=== PATIENT | female | born 1955 | race African-American/Black ===

== ENCOUNTER → 2016-08-14 | Outpatient (CLI) | payer BC ==
[~2016-08-14] MED LIST: CALCTAB54 PO; CLON.1 PO; HYDR-2768 PO; LEVO100T4 PO; LISI-357 PO; MEDR4PAK3 PO; POTA10IN2 PO
== END ==
LOC: CLAB 15:22
PROVIDERS: ATTEND Internal Medicine Hematology
DX: R23.3 Spontaneous ecchymoses (principal)
CPT/HCPCS: 36415; 85576

== ENCOUNTER → 2016-08-29 | Outpatient (CLI) | payer BC ==
[2016-08-29 08:36] LABS: HEMATOCRIT 36.7 % (35.0-46.0); MEAN CELL VOLUME 83.2 FL (80.0-100.0); MEAN CORPUSCULAR HEMOGLOBIN 26.7 PG (27.0-34.0); MEAN CORPUSCULAR HGB CONC 32.1 % (32.0-36.0); PLATELET COUNT 256 TH/MM3 (150-450); RED BLOOD COUNT 4.41 MIL/MM3 (4.00-5.30); REVIEW FLAG FINAL; WHITE BLOOD COUNT 4.7 TH/MM3 (4.0-11.0)
== END ==
LOC: CLAB 08:18
PROVIDERS: ATTEND Internal Medicine Gastroenterology
DX: E61.1 Iron deficiency (principal); R19.5 Other fecal abnormalities; Z86.010 Personal history of colon polyps
CPT/HCPCS: 36415; 82378; 85027

== ENCOUNTER → 2016-09-01 | Outpatient (CLI) | payer BC | LOC: CLAB 09:18 | PROVIDERS: ATTEND Internal Medicine Gastroenterology | DX: E61.1 Iron deficiency (principal); R19.5 Other fecal abnormalities; Z86.010 Personal history of colon polyps | CPT/HCPCS: 82272 ==

== ENCOUNTER → 2016-09-08 | Outpatient (CLI) | payer BC ==
[2016-09-08 09:27] LABS: AUTOMATED NEUTROPHIL # 1.7 TH/MM3 (1.8-7.7); BASOPHIL % 0.9 % (0.0-2.0); EOSINOPHIL # 0.1 TH/MM3 (0-0.4); EOSINOPHIL % 2.6 % (0.0-4.0); HEMATOCRIT 37.4 % (35.0-46.0); HEMO FLAGS DIFF FINAL; LYMPH % 35.7 % (9.0-44.0); LYMPHOCYTE # 1.2 TH/MM3 (1.0-4.8); MEAN CELL VOLUME 82.5 FL (80.0-100.0); MEAN CORPUSCULAR HEMOGLOBIN 27.4 PG (27.0-34.0); MEAN CORPUSCULAR HGB CONC 33.2 % (32.0-36.0); MONO % 10.6 % (0.0-8.0); NEUT % 50.2 % (16.0-70.0); PLATELET COUNT 264 TH/MM3 (150-450); RED BLOOD COUNT 4.53 MIL/MM3 (4.00-5.30); RED CELL DISTRIBUTION WIDTH 14.2 % (11.6-17.2); WHITE BLOOD COUNT 3.4 TH/MM3 (4.0-11.0)
[2016-09-08 09:50] LABS: BLOOD, URINE NEG (NEG); GLUCOSE,URINE NEG (NEG); KETONE, URINE NEG (NEG); NITRITE,URINE NEG (NEG); URINE COLOR LIGHT-YELLOW (YELLW/STRAW)
[2016-09-08 10:12] LABS: ALKALINE PHOSPHATASE 91 U/L (45-117); ALT (GPT) 15 U/L (10-53); ANION GAP 8 MEQ/L (5-15); AST (GOT) 21 U/L (15-37); BICARBONATE 29.3 MEQ/L (21.0-32.0); BLOOD UREA NITROGEN 12 MG/DL (7-18); CHLORIDE 103 MEQ/L (98-107); FERRITIN 33 NG/ML (8-252); GLOMERULAR FILTRATION RATE 69 ML/MIN (>89); GLUCOSE,FASTING 85 MG/DL (74-99); HDL CHOLESTEROL 65.4 MG/DL (40.0-60.0); LDL CHOLESTEROL 107 MG/DL (0-99); POTASSIUM 3.8 MEQ/L (3.5-5.1); SODIUM (NA) 140 MEQ/L (136-145); TOTAL BILIRUBIN ADULT 0.9 MG/DL (0.2-1.0); TRANSFERRIN IRON PROFILE 247 MG/DL (200-360)
== END ==
LOC: CLAB 08:37
PROVIDERS: ATTEND Internal Medicine
DX: E78.5 Hyperlipidemia, unspecified (principal); E03.9 Hypothyroidism, unspecified; I10 Essential (primary) hypertension; Z79.899 Other long term (current) drug therapy
CPT/HCPCS: 36415; 80053; 80061; 81001; 82306; 82728; 83540; 83550; 84443; 85025

== ENCOUNTER → 2016-11-11 | Outpatient (CLI) | payer BC ==
[2016-11-11 16:52] LABS: ALT (GPT) 15 U/L (10-53); ANION GAP 7 MEQ/L (5-15); BICARBONATE 28.2 MEQ/L (21.0-32.0); BLOOD UREA NITROGEN 14 MG/DL (7-18); CHLORIDE 104 MEQ/L (98-107); GLOMERULAR FILTRATION RATE 71 ML/MIN (>89); GLUCOSE,FASTING 95 MG/DL (74-99); POTASSIUM 3.9 MEQ/L (3.5-5.1); SODIUM (NA) 139 MEQ/L (136-145)
[2016-11-11 17:23] LABS: ALKALINE PHOSPHATASE 88 U/L (45-117); AST (GOT) 18 U/L (15-37); FERRITIN 42 NG/ML (8-252); HDL CHOLESTEROL 49.2 MG/DL (40.0-60.0); LDL CHOLESTEROL 92 MG/DL (0-99); TOTAL BILIRUBIN ADULT 0.5 MG/DL (0.2-1.0); TRANSFERRIN IRON PROFILE 232 MG/DL (200-360)
== END ==
LOC: CLAB 15:26
PROVIDERS: ATTEND Internal Medicine
DX: E55.9 Vitamin D deficiency, unspecified (principal); E78.9 Disorder of lipoprotein metabolism, unspecified; Z79.899 Other long term (current) drug therapy
CPT/HCPCS: 36415; 80053; 80061; 82306; 82728; 83540; 83550

== ENCOUNTER 2017-03-31 07:11 | Emergency (ER) | payer BC ==
[2017-03-31 07:12] VITALS: BP 204/104; PULSE 84; RESP 16; TEMP 97.8; O2SAT 99
[2017-03-31 07:28] VITALS: BP 173/99
[2017-03-31] MEDS ORDERED: SODIUM CHLORIDE 0.9% FLUSH 10 ML FLUSH IVF PRN (07:45)
--- NOTE | 2017-03-31 07:45 | PD ---
HPI Chief Complaint: Hypertension Time Seen by Provider: 07:34 Travel History International Travel<30 days: No Contact w/Intl Traveler<30days: No History of Present Illness HPI The patient is a 61-year-old [place] female who presents to the emergency department for elevated blood pressure. The patient has a history of hypertension and takes losartan 100 mg/hydrochlorothiazide 12.5 mg daily. The patient states she noticed her blood pressure was elevated yesterday and saw her primary physician, Dr. Tania Rosario, who ordered hydralazine 25 mg 3 times a day. The patient took her prescription last night, however, awakened this morning with an elevated blood pressure. The patient took her blood pressure home and it measured 200/114. The patient thinks she may have had a "tinge" in the left chest that lasted for seconds and then resolved prior to arrival. The patient was concerned about her elevated blood pressure. She does state she recently increased her Synthroid from 114 mics to 125 mics. The patient also recently started a medicine for sleeping at night and is concerned that this medicine may be interfering with her blood pressure. The patient did take her losartan, hydrocodone sent, and hydralazine prior to arrival and now notes her blood pressure has improved to the 160s/80s. The patient denies any current chest pain, shortness of breath, dizziness, blurry vision, shortness breath, nausea, vomiting, or acute focal deficits. PFSH Past Medical History Autoimmune Disease: Yes (sjogren's SYNDROME) Cardiovascular Problems: Yes (HTN) Diminished Hearing: No Hypertension: Yes Thyroid Disease: Yes ?: Not Menopausal: Yes : 2 Para: 2 Tubal Ligation: Yes Past Surgical History Endocrine Surgery: Yes (THYROIDECTOMY, PARTIAL FOLLOWED BY I2) Gynecologic Surgery: Yes Other Surgery: Yes (2004 THYROID REMOVAL WITH RADIATION) Social History Alcohol Use: No Tobacco Use: No Substance Use: No Allergies-Medications (Allergen,Severity, Reaction): Coded Allergies: amlodipine (Unverified Adverse Reaction, Severe, Swelling, 03/31/17) Reported Meds & Prescriptions Reported Meds & Active Scripts Active Reported Synthroid (Levothyroxine Sodium) 125 Mcg Tab 125 Mcg PO DAILY Losartan-Hydrochlorothiazide 100-12.5 Mg Tab 1 Tab PO DAILY Hydralazine HCl 25 Mg Tablet 25 Mg PO TID Review of Systems Except as stated in HPI: all other systems reviewed are Neg Eyes: No: Blurred Vision HENT: No: Headaches, Lightheadedness Cardiovascular: No: Chest Pain or Discomfort Respiratory: No: Shortness of Breath Gastrointestinal: No: Nausea, Vomiting Musculoskeletal: No: Weakness Neurologic: No: Dizziness, Focal Abnormalities Physical Exam Narrative GENERAL: Awake, alert, pleasant 61-year-old female who appears her stated age and is in no acute respiratory distress. SKIN: Focused skin assessment warm/dry. HEAD: Atraumatic. Normocephalic. EYES: Pupils equal and round. Pupils are 3 mm is bilateral and reactive. ENT: No nasal bleeding or discharge. Mucous membranes pink and moist. NECK: Trachea midline. No JVD. CARDIOVASCULAR: Regular rate and rhythm. No murmur appreciated. RESPIRATORY: No accessory muscle use. Clear to auscultation. Breath sounds equal bilaterally. GASTROINTESTINAL: Abdomen soft, non-tender, nondistended. MUSCULOSKELETAL: No obvious deformities. No clubbing. No cyanosis. No edema. NEUROLOGICAL: Awake and alert. No obvious cranial nerve deficits. Motor grossly within normal limits. Normal speech. Nonfocal. Oriented 4. Follows commands without difficulty. PSYCHIATRIC: Appropriate mood and affect; insight and judgment normal. Data Data Last Documented VS Vital Signs Date Time Temp Pulse Resp B/P (MAP) Pulse Ox O2 Delivery O2 Flow Rate FiO2 03/31/17 08:14 99 Room Air 03/31/17 07:12 97.8 84 16 Orders Orders Electrocardiogram (03/31/17 07:41) Ckmb (Isoenzyme) Profile (03/31/17 07:41) Complete Blood Count With Diff (03/31/17 07:41) Comprehensive Metabolic Panel (03/31/17 07:41) Troponin I (03/31/17 07:41) Ecg Monitoring (03/31/17 07:41) Bilateral Bp Monitoring (03/31/17 07:41) Iv Access Insert/Monitor (03/31/17 07:41) Oximetry (03/31/17 07:41) Sodium Chloride 0.9% Flush (Ns Flush) (03/31/17 07:45) CKMB (03/31/17 08:10) CKMB% (03/31/17 08:10) Labs Laboratory Tests Test 03/31/17 08:10 White Blood Count 3.8 TH/MM3 Red Blood Count 4.72 MIL/MM3 Hemoglobin 12.9 GM/DL Hematocrit 39.8 % Mean Corpuscular Volume 84.3 FL Mean Corpuscular Hemoglobin 27.4 PG Mean Corpuscular Hemoglobin Concent 32.5 % Red Cell Distribution Width 14.6 % Platelet Count 274 TH/MM3 Mean Platelet Volume 8.6 FL Neutrophils (%) (Auto) 64.5 % Lymphocytes (%) (Auto) 25.0 % Monocytes (%) (Auto) 8.2 % Eosinophils (%) (Auto) 1.4 % Basophils (%) (Auto) 0.9 % Neutrophils # (Auto) 2.4 TH/MM3 Lymphocytes # (Auto) 0.9 TH/MM3 Monocytes # (Auto) 0.3 TH/MM3 Eosinophils # (Auto) 0.1 TH/MM3 Basophils # (Auto) 0.0 TH/MM3 CBC Comment DIFF FINAL Differential Comment Blood Urea Nitrogen 13 MG/DL Creatinine 0.87 MG/DL Random Glucose 89 MG/DL Total Protein 7.6 GM/DL Albumin 3.1 GM/DL Calcium Level 8.2 MG/DL Alkaline Phosphatase 101 U/L Aspartate Amino Transf (AST/SGOT) 14 U/L Alanine Aminotransferase (ALT/SGPT) 11 U/L Total Bilirubin 0.7 MG/DL Sodium Level 143 MEQ/L Potassium Level 3.4 MEQ/L Chloride Level 106 MEQ/L Carbon Dioxide Level 31.7 MEQ/L Anion Gap 5 MEQ/L Estimat Glomerular Filtration Rate 80 ML/MIN Total Creatine Kinase 129 U/L Creatine Kinase MB 0.8 NG/ML Troponin I LESS THAN 0.02 NG/ML MDM Medical Decision Making Medical Screen Exam Complete: Yes Emergency Medical Condition: Yes Medical Record Reviewed: Yes Interpretation(s) EKG reveals sinus bradycardia with reveals first-degree AV block, LA 212 ms. Laboratory Tests Test 03/31/17 08:10 White Blood Count 3.8 TH/MM3 Red Blood Count 4.72 MIL/MM3 Hemoglobin 12.9 GM/DL Hematocrit 39.8 % Mean Corpuscular Volume 84.3 FL Mean Corpuscular Hemoglobin 27.4 PG Mean Corpuscular Hemoglobin Concent 32.5 % Red Cell Distribution Width 14.6 % Platelet Count 274 TH/MM3 Mean Platelet Volume 8.6 FL Neutrophils (%) (Auto) 64.5 % Lymphocytes (%) (Auto) 25.0 % Monocytes (%) (Auto) 8.2 % Eosinophils (%) (Auto) 1.4 % Basophils (%) (Auto) 0.9 % Neutrophils # (Auto) 2.4 TH/MM3 Lymphocytes # (Auto) 0.9 TH/MM3 Monocytes # (Auto) 0.3 TH/MM3 Eosinophils # (Auto) 0.1 TH/MM3 Basophils # (Auto) 0.0 TH/MM3 CBC Comment DIFF FINAL Differential Comment Blood Urea Nitrogen 13 MG/DL Creatinine 0.87 MG/DL Random Glucose 89 MG/DL Total Protein 7.6 GM/DL Albumin 3.1 GM/DL Calcium Level 8.2 MG/DL Alkaline Phosphatase 101 U/L Aspartate Amino Transf (AST/SGOT) 14 U/L Alanine Aminotransferase (ALT/SGPT) 11 U/L Total Bilirubin 0.7 MG/DL Sodium Level 143 MEQ/L Potassium Level 3.4 MEQ/L Chloride Level 106 MEQ/L Carbon Dioxide Level 31.7 MEQ/L Anion Gap 5 MEQ/L Estimat Glomerular Filtration Rate 80 ML/MIN Total Creatine Kinase 129 U/L Creatine Kinase MB 0.8 NG/ML Troponin I LESS THAN 0.02 NG/ML Differential Diagnosis Differential diagnosis includes hypertension, hypertensive urgency, hypertensive emergency, medication side effect, ACS, electrolyte abnormality. Narrative Course IV was established, labs are drawn and sent, and the patient was placed on cardiac telemetry monitoring and continuous pulse oximetry monitoring. EKG was ordered and interpreted. Troponin/CPK were sent to lab. The patient was monitored in the emergency department. EKG reveals sinus bradycardia with first -degree AV block. Labs are unremarkable, troponin and CPK are normal. The patient is advised to monitor her blood pressure, keep a blood pressure log and a follow-up with her primary physician in the next several weeks for reevaluation of her blood pressure. Return if symptoms worsen or progress. Diagnosis Primary Impression: Hypertension Qualified Codes: I10 - Essential (primary) hypertension Patient Instructions: General Instructions Additional Instructions: Please provide the patient a copy of her EKG and labs at discharge. Follow-up with your primary physician. Return if symptoms worsen or progress. Keep a blood pressure log for your primary physician. Med/Other Pt SpecificInfo: No Change to Meds Disposition: 01 DISCHARGE HOME Condition: Stable Osvaldo William MD Mar 31, 2017 07:45
[2017-03-31] MEDS ORDERED: LOSA100T3 PO (08:12)
[2017-03-31] MEDS ORDERED: HYDR-3799 PO (08:12)
[2017-03-31] MEDS ORDERED: LEVO.125 PO (08:12)
[2017-03-31 08:14] VITALS: BP_SYST 167; BP_SYST 173; BP_DIAS 87; BP_DIAS 99; O2SAT 99
[2017-03-31 08:32] LABS: AUTOMATED NEUTROPHIL # 2.4 TH/MM3 (1.8-7.7); BASOPHIL % 0.9 % (0.0-2.0); EOSINOPHIL # 0.1 TH/MM3 (0-0.4); EOSINOPHIL % 1.4 % (0.0-4.0); HEMATOCRIT 39.8 % (35.0-46.0); HEMO FLAGS DIFF FINAL; LYMPHOCYTE # 0.9 TH/MM3 (1.0-4.8); MEAN CELL VOLUME 84.3 FL (80.0-100.0); MEAN CORPUSCULAR HEMOGLOBIN 27.4 PG (27.0-34.0); MEAN CORPUSCULAR HGB CONC 32.5 % (32.0-36.0); MONO % 8.2 % (0.0-8.0); NEUT % 64.5 % (16.0-70.0); PLATELET COUNT 274 TH/MM3 (150-450); RED BLOOD COUNT 4.72 MIL/MM3 (4.00-5.30); RED CELL DISTRIBUTION WIDTH 14.6 % (11.6-17.2); WHITE BLOOD COUNT 3.8 TH/MM3 (4.0-11.0)
[2017-03-31 08:45] LABS: ALT (GPT) 11 U/L (10-53); ANION GAP 5 MEQ/L (5-15); AST (GOT) 14 U/L (15-37); BICARBONATE 31.7 MEQ/L (21.0-32.0); BLOOD UREA NITROGEN 13 MG/DL (7-18); CHLORIDE 106 MEQ/L (98-107); GLOMERULAR FILTRATION RATE 80 ML/MIN (>89); POTASSIUM 3.4 MEQ/L (3.5-5.1); SODIUM (NA) 143 MEQ/L (136-145)
[2017-03-31 08:49] LABS: ALKALINE PHOSPHATASE 101 U/L (45-117); CREATINE KINASE 129 U/L (26-192); TOTAL BILIRUBIN ADULT 0.7 MG/DL (0.2-1.0)
[2017-03-31 09:01] LABS: CKMB 0.8 NG/ML (0.5-3.6)
[2017-03-31 09:30] VITALS: BP 165/84; PULSE 85; RESP 16; O2SAT 99
[2017-03-31 10:50] VITALS: BP 164/86
--- NOTE | 2017-03-31 18:07 | EKG ---
Date Performed: 03/31/2017 Time Performed: 09:00:40 PTAGE: 61 years EKG: SINUS BRADYCARDIA WITH FIRST DEGREE AV BLOCK Since previous tracing, no significant change noted ABNORMAL ECG PREVIOUS TRACING : 03/19/2016 20.24.16 DOCTOR: Rojelio You Interpretating Date/Time 03/31/2017 18:06:40
== END 2017-03-31 10:50 | disposition home or self-care (01) ==
LOC: NEPE 07:11
DX: I10 Essential (primary) hypertension (principal); R00.1 Bradycardia, unspecified; I44.0 Atrioventricular block, first degree; R94.31 Abnormal electrocardiogram [ECG] [EKG]; M35.00 Sjogren syndrome, unspecified; E07.9 Disorder of thyroid, unspecified; Z79.899 Other long term (current) drug therapy; Z88.8 Allergy status to other drugs, medicaments and biological substances
CPT/HCPCS: 80053; 82550; 82552; 84484; 85025; 93005; 99285

== ENCOUNTER → 2017-06-15 | Outpatient (CLI) | payer BC ==
[~2017-06-15] MED LIST changes: -CALCTAB54 PO; -CLON.1 PO; -HYDR-2768 PO; +HYDR-3799 PO; +LEVO.125 PO; -LEVO100T4 PO; -LISI-357 PO; +LOSA100T3 PO; -MEDR4PAK3 PO; -POTA10IN2 PO
[2017-06-15 09:17] LABS: AUTOMATED NEUTROPHIL # 1.7 TH/MM3 (1.8-7.7); BASOPHIL # 0.1 TH/MM3 (0-0.2); BASOPHIL % 1.3 % (0.0-2.0); EOSINOPHIL # 0.2 TH/MM3 (0-0.4); EOSINOPHIL % 4.5 % (0.0-4.0); HEMATOCRIT 35.4 % (35.0-46.0); HEMOGLOBIN 11.8 GM/DL (11.6-15.3); LYMPHOCYTE # 1.5 TH/MM3 (1.0-4.8); MEAN CELL VOLUME 83.7 FL (80.0-100.0); MEAN CORPUSCULAR HEMOGLOBIN 27.8 PG (27.0-34.0); MEAN CORPUSCULAR HGB CONC 33.2 % (32.0-36.0); MEAN PLATELET VOLUME 8.5 FL (7.0-11.0); MONO % 10.3 % (0.0-8.0); MONOCYTE # 0.4 TH/MM3 (0-0.9); NEUT % 44.9 % (16.0-70.0); PLATELET COUNT 231 TH/MM3 (150-450); RED BLOOD COUNT 4.23 MIL/MM3 (4.00-5.30); RED CELL DISTRIBUTION WIDTH 14.5 % (11.6-17.2); WHITE BLOOD COUNT 3.9 TH/MM3 (4.0-11.0)
[2017-06-15 09:33] LABS: ALBUMIN 3.2 GM/DL (3.4-5.0); BICARBONATE 29.4 MEQ/L (21.0-32.0); BLOOD UREA NITROGEN 14 MG/DL (7-18); CALCIUM 8.1 MG/DL (8.5-10.1); CHLORIDE 106 MEQ/L (98-107); CHOLESTEROL 155 MG/DL (120-200); CREATININE 0.79 MG/DL (0.50-1.00); GLOMERULAR FILTRATION RATE 89 ML/MIN (>89); GLUCOSE,FASTING 88 MG/DL (74-99); SODIUM (NA) 141 MEQ/L (136-145)
[2017-06-15 09:34] LABS: ALT (GPT) 12 U/L (10-53); IRON (FE) 58 MCG/DL (50-170); LDL CHOLESTEROL DIRECT 95 MG/DL (0-99); TRIGLYCERIDES 31 MG/DL (42-150)
[2017-06-15 09:48] LABS: % SATURATION IRON PROFILE 19.8 % (20-50); ALKALINE PHOSPHATASE 96 U/L (45-117); AST (GOT) 17 U/L (15-37); CHOLESTEROL/ HDL RATIO 2.46 RATIO; FERRITIN 33 NG/ML (8-252); FREE T3 1.95 PG/ML (2.18-3.98); HDL CHOLESTEROL 62.9 MG/DL (40.0-60.0); LDL CHOLESTEROL 86 MG/DL (0-99); TOTAL BILIRUBIN ADULT 0.7 MG/DL (0.2-1.0); TOTAL IRON BINDING CAPACITY 293 MCG/DL (250-450); TOTAL PROTEIN 7.2 GM/DL (6.4-8.2)
== END ==
LOC: CLAB 08:28
PROVIDERS: ATTEND Internal Medicine
DX: E55.9 Vitamin D deficiency, unspecified (principal); E03.9 Hypothyroidism, unspecified; I10 Essential (primary) hypertension; Z79.899 Other long term (current) drug therapy
CPT/HCPCS: 36415; 80053; 80061; 82306; 82728; 83540; 83550; 83721; 84443; 84481; 85025

== ENCOUNTER → 2017-06-26 | Outpatient (CLI) | payer BC ==
[2017-06-26 13:42] LABS: FREE T3 2.17 PG/ML (2.18-3.98)
== END ==
LOC: CLAB 12:51
PROVIDERS: ATTEND Family Medicine
DX: E03.9 Hypothyroidism, unspecified (principal)
CPT/HCPCS: 36415; 84443; 84481

== ENCOUNTER 2017-09-23 12:50 | Observation (INO) | payer BC ==
[~2017-09-23] VITALS: Ht 162.6 cm; Wt 97.5 kg
[2017-09-23] VITALS (7 sets, daily range): BP systolic 144–186; BP diastolic 88–95; PULSE 67–92; RESP 15–20; TEMP 97.7–97.9; O2SAT 91–98
[2017-09-23 13:52] LABS: BILIRUBIN, URINE NEG (NEG); BLOOD, URINE NEG (NEG); GLUCOSE,URINE NEG (NEG); KETONE, URINE NEG (NEG); NITRITE,URINE NEG (NEG); SQUAMOUS EPITHELIAL CELL URINE <1 /hpf (0-5); URINE COLOR COLORLESS (YELLW/STRAW); URINE LEUKOCYTE ESTERASE TRACE (NEG)
--- NOTE | 2017-09-23 14:52 | RADRPT ---
EXAM DATE: 09/23/2017 2:46 PM EDT AGE/SEX: 62 years / Female INDICATIONS: Chest pain, short of breath, loss of vision in left eye today. CLINICAL DATA: This is the patient's initial encounter. Patient reports that signs and symptoms have been present for 2 weeks and indicates a pain score of 0/10. MEDICAL/SURGICAL HISTORY: None. None. [place] [facility] [place]. . FINDINGS: PA and lateral views of the chest demonstrate the lungs to be symmetrically aerated without evidence of mass, infiltrate or effusion. The cardiomediastinal contours are unremarkable. Osseous structures are intact. CONCLUSION: Negative examination. Electronically signed by: Caleb Banuelos MD 09/23/2017 2:50 PM EDT
--- NOTE | 2017-09-23 15:18 | PD ---
HPI Chief Complaint: Hypertension Time Seen by Provider: 14:59 Travel History International Travel<30 days: No Contact w/Intl Traveler<30days: No Traveled to known affect area: No History of Present Illness HPI This patient complains of having intermittent symptoms over the last 7 days. She has had some left upper chest cramping and discomfort. It occurred this morning at 1030 when she was out doing some yard work. When she rested it went away. She is currently pain-free. She reports she has had trouble keeping her blood pressure under control. Currently 152/92. He is on medication for it. Symptom severity is moderate. No alleviating factors. No exacerbating factors. PFSH Past Medical History Arthritis: Yes Autoimmune Disease: Yes (sjogren's SYNDROME) Cancer: Yes (ca thyroid) Cardiovascular Problems: Yes (HTN) Diminished Hearing: No Gastrointestinal Disorders: Yes (gerd in the past) GERD: Yes Hypertension: Yes Musculoskeletal: Yes (arthritis r knee) Respiratory: Yes (sleep apnea) Sleep Apnea: Yes Thyroid Disease: Yes ?: Not Menopausal: Yes : 2 Para: 2 Tubal Ligation: Yes Past Surgical History Endocrine Surgery: Yes (THYROIDECTOMY, PARTIAL FOLLOWED BY I2) Gynecologic Surgery: Yes Other Surgery: Yes (2003 THYROID REMOVAL WITH RADIATION) Social History Alcohol Use: No Tobacco Use: No Substance Use: No Allergies-Medications (Allergen,Severity, Reaction): Coded Allergies: lisinopril (Verified Allergy, Unknown, 09/23/17) numbness and weakness losartan (Verified Allergy, Unknown, 09/23/17) angioedema amlodipine (Unverified Adverse Reaction, Severe, Swelling, 09/23/17) Reported Meds & Prescriptions Reported Meds & Active Scripts Active Reported Micardis (Telmisartan) 20 Mg Tab 20 Mg PO DAILY Synthroid (Levothyroxine Sodium) 125 Mcg Tab 125 Mcg PO DAILY Review of Systems General / Constitutional: No: Fever Eyes: Positive: Blurred Vision, No: Visual changes HENT: No: Headaches Cardiovascular: Positive: Chest Pain or Discomfort Respiratory: No: Shortness of Breath Gastrointestinal: No: Abdominal Pain Genitourinary: No: Dysuria Musculoskeletal: No: Pain Skin: No Rash Neurologic: No: Weakness Psychiatric: No: Depression Endocrine: No: Polydipsia Hematologic/Lymphatic: No: Easy Bruising Physical Exam Narrative GENERAL: Well-nourished, well-developed patient in no apparent distress. SKIN: Focused skin assessment reveals no rash and nodules. Skin is Warm and dry. HEAD: Atraumatic. Normocephalic. EYES: Pupils equal and round. No scleral icterus. No injection or drainage. ENT: No nasal bleeding or discharge. Mucous membranes pink and moist. NECK: Trachea midline. No JVD. CARDIOVASCULAR: Regular rate and rhythm. No murmur appreciated. RESPIRATORY: No accessory muscle use. Clear to auscultation. Breath sounds equal bilaterally. GASTROINTESTINAL: Abdomen soft, non-tender, nondistended. Hepatic and splenic margins not palpable. MUSCULOSKELETAL: No obvious deformities. No clubbing. No cyanosis. No edema. NEUROLOGICAL: Awake and alert. No obvious cranial nerve deficits. Motor grossly within normal limits. Normal speech. PSYCHIATRIC: Appropriate mood and affect; insight and judgment normal. Data Data Last Documented VS Vital Signs Date Time Temp Pulse Resp B/P (MAP) Pulse Ox O2 Delivery O2 Flow Rate FiO2 09/23/17 17:10 92 16 145/88 (107) 91 Room Air 09/23/17 13:02 97.7 Orders Orders Electrocardiogram (09/23/17 ) Urinalysis - C+S If Indicated (09/23/17 13:03) Complete Blood Count With Diff (09/23/17 14:11) Ckmb (Isoenzyme) Profile (09/23/17 14:11) Troponin I (09/23/17 14:11) Iv Access Insert/Monitor (09/23/17 14:11) Ecg Monitoring (09/23/17 14:11) Oxygen Administration (09/23/17 14:11) Oximetry (09/23/17 14:11) Comprehensive Metabolic Panel (09/23/17 14:11) Chest, Pa & Lat (09/23/17 14:11) CKMB (09/23/17 14:45) CKMB% (09/23/17 14:45) Labs Laboratory Tests Test 09/23/17 13:12 09/23/17 14:45 Urine Color COLORLESS Urine Turbidity CLEAR Urine pH 6.0 Urine Specific [place] 1.003 Urine Protein NEG mg/dL Urine Glucose (UA) NEG mg/dL Urine Ketones NEG mg/dL Urine Occult Blood NEG Urine Nitrite NEG Urine Bilirubin NEG Urine Urobilinogen LESS THAN 2.0 MG/DL Urine Leukocyte Esterase TRACE Urine WBC 1 /hpf Urine Squamous Epithelial Cells <1 /hpf Microscopic Urinalysis Comment CULT NOT INDICATED White Blood Count 4.0 TH/MM3 Red Blood Count 4.87 MIL/MM3 Hemoglobin 13.4 GM/DL Hematocrit 41.6 % Mean Corpuscular Volume 85.4 FL Mean Corpuscular Hemoglobin 27.6 PG Mean Corpuscular Hemoglobin Concent 32.3 % Red Cell Distribution Width 14.7 % Platelet Count 286 TH/MM3 Mean Platelet Volume 8.9 FL Neutrophils (%) (Auto) 57.9 % Lymphocytes (%) (Auto) 31.7 % Monocytes (%) (Auto) 9.1 % Eosinophils (%) (Auto) 0.5 % Basophils (%) (Auto) 0.8 % Neutrophils # (Auto) 2.3 TH/MM3 Lymphocytes # (Auto) 1.3 TH/MM3 Monocytes # (Auto) 0.4 TH/MM3 Eosinophils # (Auto) 0.0 TH/MM3 Basophils # (Auto) 0.0 TH/MM3 CBC Comment DIFF FINAL Differential Comment Blood Urea Nitrogen 11 MG/DL Creatinine 0.93 MG/DL Random Glucose 79 MG/DL Total Protein 8.0 GM/DL Albumin 3.4 GM/DL Calcium Level 8.4 MG/DL Alkaline Phosphatase 88 U/L Aspartate Amino Transf (AST/SGOT) 22 U/L Alanine Aminotransferase (ALT/SGPT) 17 U/L Total Bilirubin 0.9 MG/DL Sodium Level 142 MEQ/L Potassium Level 3.9 MEQ/L Chloride Level 104 MEQ/L Carbon Dioxide Level 29.9 MEQ/L Anion Gap 8 MEQ/L Estimat Glomerular Filtration Rate 73 ML/MIN Total Creatine Kinase 153 U/L Creatine Kinase MB 0.9 NG/ML Troponin I LESS THAN 0.02 NG/ML [facility] Medical Decision Making Medical Screen Exam Complete: Yes Emergency Medical Condition: Yes Medical Record Reviewed: Yes Differential Diagnosis Differential diagnosis includes CT, angina, pericarditis, pleurisy, GERD, anxiety. Narrative Course I have reviewed the patient's electronic medical record. This patient had some left-sided chest pain on and off for a week. She has risk factors. Workup is ordered I gave her an aspirin She is neurologically intact. She did mention that she has had some left eye blurry vision but On examination I see that the lens of her glasses on the left side had fallen out and she had no idea. I reviewed her EKG which shows sinus rhythm with no ST elevation or ectopy Extended cardiac monitoring reveals sinus rhythm without ectopy Labs sent Metabolic studies and CBC and cardiac enzymes are normal Patient has multiple risk factors. She will be a observation in the chest pain center to rule out cardiac cause of her symptoms. Diagnosis Primary Impression: Chest pain Qualified Codes: R07.9 - Chest pain, unspecified Additional Impression: Hypertension Qualified Codes: I10 - Essential (primary) hypertension Admitting Information Admitting Physician Requests: Observation Neftali Dorsey MD Sep 23, 2017 15:18
[2017-09-23] MEDS ORDERED: TELM20 PO (15:49)
[2017-09-23 15:54] LABS: AUTOMATED NEUTROPHIL # 2.3 TH/MM3 (1.8-7.7); BASOPHIL % 0.8 % (0.0-2.0); EOSINOPHIL % 0.5 % (0.0-4.0); HEMATOCRIT 41.6 % (35.0-46.0); HEMOGLOBIN 13.4 GM/DL (11.6-15.3); LYMPH % 31.7 % (9.0-44.0); LYMPHOCYTE # 1.3 TH/MM3 (1.0-4.8); MEAN CELL VOLUME 85.4 FL (80.0-100.0); MEAN CORPUSCULAR HEMOGLOBIN 27.6 PG (27.0-34.0); MEAN CORPUSCULAR HGB CONC 32.3 % (32.0-36.0); MEAN PLATELET VOLUME 8.9 FL (7.0-11.0); MONO % 9.1 % (0.0-8.0); MONOCYTE # 0.4 TH/MM3 (0-0.9); NEUT % 57.9 % (16.0-70.0); PLATELET COUNT 286 TH/MM3 (150-450); RED BLOOD COUNT 4.87 MIL/MM3 (4.00-5.30); RED CELL DISTRIBUTION WIDTH 14.7 % (11.6-17.2)
[2017-09-23 16:17] LABS: ALKALINE PHOSPHATASE 88 U/L (45-117); TOTAL BILIRUBIN ADULT 0.9 MG/DL (0.2-1.0); TROPONIN I LESS THAN 0.02 NG/ML (0.02-0.05)
[2017-09-23 16:40] LABS: ALBUMIN 3.4 GM/DL (3.4-5.0); ALT (GPT) 17 U/L (10-53); AST (GOT) 22 U/L (15-37); BICARBONATE 29.9 MEQ/L (21.0-32.0); BLOOD UREA NITROGEN 11 MG/DL (7-18); CALCIUM 8.4 MG/DL (8.5-10.1); CHLORIDE 104 MEQ/L (98-107); CREATININE 0.93 MG/DL (0.50-1.00); GLOMERULAR FILTRATION RATE 73 ML/MIN (>89); GLUCOSE,RANDOM 79 MG/DL (74-106); SODIUM (NA) 142 MEQ/L (136-145)
[2017-09-23] MEDS ORDERED: SODIUM CHLORIDE 0.9% FLUSH 10 ML FLUSH IV FLUSH PRN (18:30)
[2017-09-23 19:31] LABS: TROPONIN I LESS THAN 0.02 NG/ML (0.02-0.05)
[2017-09-23] MEDS: SODIUM CHLORIDE 0.9% FLUSH 10 ML FLUSH IV FLUSH SCH (21:20)
[2017-09-23 22:37] LABS: TROPONIN I LESS THAN 0.02 NG/ML (0.02-0.05)
[2017-09-24] VITALS (8 sets, daily range): BP systolic 137–159; BP diastolic 77–98; PULSE 61–86; RESP 14–18; TEMP 97.9–98.9; O2SAT 96–99
[2017-09-24] MEDS ORDERED: LEVOTHYROXINE SODIUM 125 MCG TAB PO SCH (09:00)
[2017-09-24] MEDS ORDERED: TELMISARTAN 20 MG PO SCH (09:00)
[2017-09-24] MEDS ORDERED: [UNRECOGNIZED DRUG - OTHER] PO SCH (09:05)
[2017-09-24] MEDS ORDERED: MICARDIS PO SCH (09:05)
--- NOTE | 2017-09-24 09:08 | HHI.HP ---
[facility] Primary Care Physician Kalia Rosario M.D. Chief Complaint Chest pain History of Present Illness This is a 62-year-old female who presents to ED via private vehicle with complaint of chest pain and elevated blood pressures. Patient states that over the last week she has had intermittent episodes of sweating profusely, increased heart rate, and increased blood pressure with regular activity. Then yesterday she was doing some yard work which she describes as doing some raking when she developed a left-sided discomfort in her chest. It was described as an ache. Was rated as 1-2 out of 10. Lasted a few seconds. She has states that she has had same type ache intermittently over last few months and may be 5 times over the last week but not necessarily associated with the other symptoms. States that she saw her helmet hat brim cutter Dr. Stafford last within the last couple months and was scheduled to have a nuclear stress test but she was unable to keep the appointment. States she has had normal stress test in the past. Upon reviewing records she had a nonischemic Lexiscan in 2012. Currently denies discomforts or other symptoms. Had recently seen her PCP and was taken off of losartan placed on Benicar and has been on the medication for 4 days. Review of Systems General: Patient denies fevers, chills recent, and recent travel HEENT: Patient denies headache, sore throat, difficulty swallowing. Cardiovascular: Has the chest discomfort as mentioned above. Had sensation of heart beating rapidly. Denies sensation of heart beating irregularly. No syncope. She has had diaphoresis. Respiratory: She has been short of breath. Denies inspirational chest discomfort. Denies coughing wheezing or hemoptysis. GI: Patient denies nausea, vomiting, diarrhea, abdominal pain, bloody stools. Musculoskeletal: Patient denies joint pain or edema. Denies calf pain or edema. Neurovascular: Patient denies numbness, tingling, weakness in extremities. Denies headache. Endocrine: Denies polyuria and polydipsia. Hematologic: Denies easy bruising. Skin: Denies rash or itching. Past Family Social History Allergies: Coded Allergies: lisinopril (Verified Allergy, Unknown, 09/23/17) numbness and weakness losartan (Verified Allergy, Unknown, 09/23/17) angioedema amlodipine (Unverified Adverse Reaction, Severe, Swelling, 09/23/17) Past Medical History Hypertension, GERD, hypothyroidism. History of papillary thyroid cancer status post thyroidectomy and radioactive iodine treatment in 2003. Sjogren syndrome. Denies hyperlipidemia, diabetes, and CAD. Past Surgical History Thyroidectomy. Reported Medications Reported Meds & Active Scripts Active Reported Micardis (Telmisartan) 20 Mg Tab 20 Mg PO DAILY Synthroid (Levothyroxine Sodium) 125 Mcg Tab 125 Mcg PO DAILY Active Ordered Medications Current Medications Medications (Trade) Dose Ordered Sig/Keerthi Route Start Time Stop Time Status Last Admin (NS Flush) 2 ml UNSCH PRN IV FLUSH 09/23/17 18:30 (NS Flush) 2 ml BID IV FLUSH 09/23/17 21:00 09/23/17 21:20 (Synthroid) 125 mcg DAILY@0600 PO 09/24/17 09:00 (Micardis) 20 mg DAILY PO 09/24/17 09:00 Future Hold Family History Denies family history of CAD Social History Non-smoker. Denies alcohol or illicit drug use. 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 Physical Exam Vital Signs Vital Signs Date Time Temp Pulse Resp B/P (MAP) Pulse Ox O2 Delivery O2 Flow Rate FiO2 09/24/17 08:56 96 21 09/24/17 08:13 97.9 86 18 150/98 (115) 96 09/24/17 05:23 98.1 61 15 159/90 (113) 98 09/24/17 04:05 70 09/24/17 01:16 98.2 61 14 138/77 (97) 98 09/24/17 00:02 68 09/23/17 20:35 67 09/23/17 20:14 97.9 73 17 174/95 (121) 97 09/23/17 18:57 (107) 09/23/17 17:10 92 16 145/88 (107) 91 Room Air 09/23/17 16:50 81 18 144/88 (106) 98 09/23/17 16:13 74 15 163/94 (117) 98 Room Air 09/23/17 14:56 98 Room Air 09/23/17 14:56 98 Room Air 09/23/17 13:02 97.7 71 20 186/88 (120) 98 Laboratory Laboratory Tests Test 09/23/17 13:12 09/23/17 14:45 09/23/17 18:30 09/23/17 21:21 Urine Color COLORLESS Urine Turbidity CLEAR Urine pH 6.0 Urine Specific [place] 1.003 Urine Protein NEG Urine Glucose (UA) NEG Urine Ketones NEG Urine Occult Blood NEG Urine Nitrite NEG Urine Bilirubin NEG Urine Urobilinogen LESS THAN 2.0 Urine Leukocyte Esterase TRACE Urine WBC 1 Urine Squamous Epithelial Cells <1 Microscopic Urinalysis Comment CULT NOT INDICATED White Blood Count 4.0 Red Blood Count 4.87 Hemoglobin 13.4 Hematocrit 41.6 Mean Corpuscular Volume 85.4 Mean Corpuscular Hemoglobin 27.6 Mean Corpuscular Hemoglobin Concent 32.3 Red Cell Distribution Width 14.7 Platelet Count 286 Mean Platelet Volume 8.9 Neutrophils (%) (Auto) 57.9 Lymphocytes (%) (Auto) 31.7 Monocytes (%) (Auto) 9.1 Eosinophils (%) (Auto) 0.5 Basophils (%) (Auto) 0.8 Neutrophils # (Auto) 2.3 Lymphocytes # (Auto) 1.3 Monocytes # (Auto) 0.4 Eosinophils # (Auto) 0.0 Basophils # (Auto) 0.0 CBC Comment DIFF FINAL Differential Comment Blood Urea Nitrogen 11 Creatinine 0.93 Random Glucose 79 Total Protein 8.0 Albumin 3.4 Calcium Level 8.4 Alkaline Phosphatase 88 Aspartate Amino Transf (AST/SGOT) 22 Alanine Aminotransferase (ALT/SGPT) 17 Total Bilirubin 0.9 Sodium Level 142 Potassium Level 3.9 Chloride Level 104 Carbon Dioxide Level 29.9 Anion Gap 8 Estimat Glomerular Filtration Rate 73 Total Creatine Kinase 153 107 133 Creatine Kinase MB 0.9 0.5 0.8 Troponin I LESS THAN 0.02 LESS THAN 0.02 LESS THAN 0.02 Result Diagram: 09/23/17 1445 09/23/17 1445 Imaging Last 48 hours Impressions Chest X-Ray 09/23/17 1411 Signed Impressions: CONCLUSION: Negative examination. Course EKGs are sinus rhythm with borderline first-degree AV block. No significant ST segment pressure elevation. Caprini VTE Risk Assessment Caprini VTE Risk Assessment: Mod/High Risk (score >= 2) Caprini Risk Assessment Model Point Value = 1 Point Value = 2 Point Value = 3 Point Value = 5 Age 41-60 Minor surgery BMI > 25 kg/m2 Swollen legs Varicose veins or History of unexplained or recurrent spontaneous Oral contraceptives or hormone replacement Sepsis (< 1 month) Serious lung disease, including pneumonia (< 1 month) Abnormal pulmonary function Acute myocardial infarction Congestive heart failure (< 1 month) History of inflammatory bowel disease Medical patient at bed rest Age 61-74 Arthroscopic surgery Major open surgery (> 45 min) Laparoscopic surgery (> 45 min) Malignancy Confined to bed (> 72 hours) Immobilizing plaster cast Central venous access Age >= 75 History of VTE Family history of VTE Factor V Leiden Prothrombin [id number] Lupus anticoagulant Anticardiolipin antibodies Elevated serum homocysteine Heparin-induced thrombocytopenia Other congenital or acquired thrombophilia Stroke (< 1 month) Elective arthroplasty Hip, pelvis, or leg fracture Acute spinal cord injury (< 1 month) Prophylaxis Regimen Total Risk Factor Score Risk Level Prophylaxis Regimen 0-1 Low Early ambulation 2 Moderate Order ONE of the following: *Sequential Compression Device (SCD) *Heparin 5000 units SQ BID 3-4 Higher Order ONE of the following medications: *Heparin 5000 units SQ TID *Enoxaparin/Lovenox 40 mg SQ daily (WT < 150 kg, CrCl > 30 mL/min) *Enoxaparin/Lovenox 30 mg SQ daily (WT < 150 kg, CrCl > 10-29 mL/min) *Enoxaparin/Lovenox 30 mg SQ BID (WT < 150 kg, CrCl > 30 mL/min) AND/OR *Sequential Compression Device (SCD) 5 or more Highest Order ONE of the following medications: *Heparin 5000 units SQ TID (Preferred with Epidurals) *Enoxaparin/Lovenox 40 mg SQ daily (WT < 150 kg, CrCl > 30 mL/min) *Enoxaparin/Lovenox 30 mg SQ daily (WT < 150 kg, CrCl > 10-29 mL/min) *Enoxaparin/Lovenox 30 mg SQ BID (WT < 150 kg, CrCl > 30 mL/min) AND *Sequential Compression Device (SCD) Assessment and Plan Assessment and Plan * Chest pain: Patient has had serial cardiac enzymes and EKGs for ruling out purposes. She will be seen by Dr. Georges of cardiology in the chest pain center. I have also discussed the patient with Dr. Stafford. She confirms that she has seen the patient in the office. She was scheduled for stress testing but canceled and has not rescheduled. We will get a Lexiscan at this time. Patient will be discharged home if her stress test is nonischemic with instructions to follow-up with PCP and helmet hat brim cutter. Return to ED for interval issues. * Hypertension: Continue medication. Patient to monitor blood pressure and record the readings. Keep a journal to discuss with her PCP. * Hypothyroidism: Continue medication. Patient stable this time. She is agreeable to this plan. Manoj Bloom Sep 24, 2017 09:08
[2017-09-24] MEDS: SODIUM CHLORIDE 0.9% FLUSH 10 ML FLUSH IV FLUSH SCH (10:21)
[2017-09-24] MEDS ORDERED: REGADENOSON INJ 0.4 MG/5 ML SYR ONE (10:48)
--- NOTE | 2017-09-24 12:42 | RADRPT ---
EXAM DATE: 09/24/2017 12:30 PM EDT AGE/SEX: 62 years / Female INDICATIONS:Angina. . Chest pain x 7 days. CLINICAL DATA: This is the patient's initial encounter. Patient reports that signs and symptoms have been present for 1 day and indicates a pain score of 0/10. MEDICAL/SURGICAL HISTORY: Carcinoma, thyroid. Hypertension. Sjogren's SYNDROME. Tubal ligatio n. Thyroidectomy. COMPARISON: No prior exams available for comparison. DOSE: 8.3 mCi Tc 99m Myoview at rest 27.3 mCi [id number] at stress 0.4 mg Lexiscan STRESS SYMPTOMS: None. EJECTION FRACTION: 69 % TECHNIQUE: The patient underwent pharmacologic stress with infusion of prescribed dose. Continuous ECG tracing was monitored during stress. Gated SPECT imaging was performed after stress and conventi onal SPECT imaging was performed at rest. The examination was performed on a SPECT/CT scanner, both attenuation and non-corrected datasets were reviewed. FINDINGS: Distribution: The maximum perfused segment at stress is in the septal wall. Perfusion Study: Mildly diminished relative apical perfusion. No evidence of ischemia Gated Study: There are intact wall motion and wall thickening without hypokinetic or dyskinetic segm ents. The ejection fraction is calculated at 69%. RISK CATEGORY: Low (<1% Annual Motality Rate) CONCLUSION: Negative examination. Electronically signed by: Caleb Banuelos MD 09/24/2017 12:41 PM EDT
--- NOTE | 2017-09-24 12:59 | HHI.DCPOC ---
Discharge Care Plan Diagnosis: (1) Chest pain (2) Hypertension Goals to Promote Your Health * To prevent worsening of your condition and complications * To maintain your health at the optimal level Directions to Meet Your Goals Take your medications as prescribed Follow your dietary instruction Follow activity as directed Keep your appointments as scheduled Take your immunizations and boosters as scheduled If your symptoms worsen call your PCP, if no PCP go to Urgent Care Center or Emergency Room Smoking is Dangerous to Your Health. Avoid second hand smoke Call the 24-hour hour crisis hotline for domestic abuse at Manoj Bloom Sep 24, 2017 12:59
--- NOTE | 2017-09-24 14:20 | PD.CARD.PN ---
Subjective Subjective Remarks This patient was seen and examined personally after review of medical records. Case was discussed with the physician life teacher and hospital course was outlined consistent with chest pain center protocol. Patient was ruled out for acute TX and then evaluated with nuclear stress test. Patient was discharged to further outpatient follow-up with her primary care physician and with Dr. Stafford. Objective Vital Signs / I&O Vital Signs Date Time Temp Pulse Resp B/P (MAP) Pulse Ox O2 Delivery O2 Flow Rate FiO2 09/24/17 12:46 98.9 68 18 137/95 (109) 99 09/24/17 08:56 96 21 09/24/17 08:13 97.9 86 18 150/98 (115) 96 09/24/17 07:58 86 09/24/17 05:23 98.1 61 15 159/90 (113) 98 09/24/17 04:05 70 09/24/17 01:16 98.2 61 14 138/77 (97) 98 09/24/17 00:02 68 09/23/17 20:35 67 09/23/17 20:14 97.9 73 17 174/95 (121) 97 09/23/17 18:57 (107) 09/23/17 17:10 92 16 145/88 (107) 91 Room Air 09/23/17 16:50 81 18 144/88 (106) 98 09/23/17 16:13 74 15 163/94 (117) 98 Room Air 09/23/17 14:56 98 Room Air 09/23/17 14:56 98 Room Air Physical Exam Physical examination is as recorded although a very soft grade 2/6 systolic murmur was noted radiating from the right apex to the right sternal border. Laboratory Laboratory Tests Test 09/23/17 14:45 09/23/17 18:30 09/23/17 21:21 White Blood Count 4.0 TH/MM3 Red Blood Count 4.87 MIL/MM3 Hemoglobin 13.4 GM/DL Hematocrit 41.6 % Mean Corpuscular Volume 85.4 FL Mean Corpuscular Hemoglobin 27.6 PG Mean Corpuscular Hemoglobin Concent 32.3 % Red Cell Distribution Width 14.7 % Platelet Count 286 TH/MM3 Mean Platelet Volume 8.9 FL Neutrophils (%) (Auto) 57.9 % Lymphocytes (%) (Auto) 31.7 % Monocytes (%) (Auto) 9.1 % Eosinophils (%) (Auto) 0.5 % Basophils (%) (Auto) 0.8 % Neutrophils # (Auto) 2.3 TH/MM3 Lymphocytes # (Auto) 1.3 TH/MM3 Monocytes # (Auto) 0.4 TH/MM3 Eosinophils # (Auto) 0.0 TH/MM3 Basophils # (Auto) 0.0 TH/MM3 CBC Comment DIFF FINAL Differential Comment Blood Urea Nitrogen 11 MG/DL Creatinine 0.93 MG/DL Random Glucose 79 MG/DL Total Protein 8.0 GM/DL Albumin 3.4 GM/DL Calcium Level 8.4 MG/DL Alkaline Phosphatase 88 U/L Aspartate Amino Transf (AST/SGOT) 22 U/L Alanine Aminotransferase (ALT/SGPT) 17 U/L Total Bilirubin 0.9 MG/DL Sodium Level 142 MEQ/L Potassium Level 3.9 MEQ/L Chloride Level 104 MEQ/L Carbon Dioxide Level 29.9 MEQ/L Anion Gap 8 MEQ/L Estimat Glomerular Filtration Rate 73 ML/MIN Total Creatine Kinase 153 U/L 107 U/L 133 U/L Creatine Kinase MB 0.9 NG/ML 0.5 NG/ML 0.8 NG/ML Troponin I LESS THAN 0.02 NG/ML LESS THAN 0.02 NG/ML LESS THAN 0.02 NG/ML Imaging Last 24 hours Impressions Myocardial Perfusion Scan Nuc Med 09/24/17 0000 Signed Impressions: CONCLUSION: Negative examination. Assessment and Plan Assessment and Plan After a negative evaluation the patient is discharged to follow-up with her primary care physician for review of her blood pressure medication and control. She is fully aware of the importance of doing this and states that she will follow through. Discussed Condition With Discussed with the physician life teacher Jimmy Georges MD Sep 24, 2017 14:20
--- NOTE | 2017-09-24 14:27 | EKG ---
Date Performed: 09/23/2017 Time Performed: 22:14:14 PTAGE: 62 years EKG: Sinus rhythm WITH FIRST DEGREE AV BLOCK ABNORMAL ECG NO SIG CHANGE PREVIOUS TRACING : 09/23/2017 17.29 DOCTOR: Jimmy Georges Interpretating Date/Time 09/24/2017 14:25:30
--- NOTE | 2017-09-24 14:30 | EKG ---
Date Performed: 09/23/2017 Time Performed: 13:11:18 PTAGE: 62 years EKG: Sinus rhythm WITH FIRST DEGREE AV BLOCK ABNORMAL ECG INTERPRETATION BASED ON A DEFAULT AGE OF 38 YEARS NO SIG NICKY NGE NO PREVIOUS TRACING DOCTOR: Jimmy Georges Interpretating Date/Time 09/24/2017 14:29:56
--- NOTE | 2017-09-24 14:30 | EKG ---
Date Performed: 09/23/2017 Time Performed: 17:29:30 PTAGE: 62 years EKG: Sinus rhythm WITH FIRST DEGREE AV BLOCK ABNORMAL ECG NO SIG CHANGE PREVIOUS TRACING : 09/23/2017 13.11 DOCTOR: Jimmy Georges Interpretating Date/Time 09/24/2017 14:28:48
--- NOTE | 2017-09-24 14:35 | TR ---
Date Performed: 09/24/2017 Time Performed: 10:43:26 DOCTOR: Jimmy Georges DRUG LIST: CLINICAL HISTORY: REASON FOR TEST: REASON FOR ENDING: OBSERVATION: CONCLUSION: Lexiscan stress test was performed under standard four minute protocol. Radionuclide was injected one minute prior to ending the test. No electrocardiographic abormalities were present to suggest ischemia. Nuclear imaging and interpretation are pending. COMMENTS: SUBSEQUENT REPORT NEGATIVE FOR ISCHEMIA
== END 2017-09-24 14:00 | disposition home or self-care (01) ==
LOC: NEPE 12:50 → NEDA 18:20 → NEPFCDU 19:15
PROVIDERS: ADMIT Internal Medicine Cardiovascular Disease; ATTEND Internal Medicine Cardiovascular Disease
DX: R07.89 Other chest pain (principal); I10 Essential (primary) hypertension; E03.9 Hypothyroidism, unspecified; R06.02 Shortness of breath; H54.62 Unqualified visual loss, left eye, normal vision right eye; R94.31 Abnormal electrocardiogram [ECG] [EKG]; M35.00 Sjogren syndrome, unspecified
CPT/HCPCS: 71046; 78452; 80053; 81001; 82550; 82552; 84484; 85025; 93005; 93017; 99285; A9502; G0378; J2785

== ENCOUNTER → 2017-10-12 | Outpatient (CLI) | payer BC ==
[~2017-10-12] MED LIST changes: -HYDR-3799 PO; -LOSA100T3 PO; +TELM20 PO
[2017-10-12 07:38] LABS: BICARBONATE 28.1 MEQ/L (21.0-32.0); CALCIUM 8.4 MG/DL (8.5-10.1)
== END ==
LOC: CLAB 06:46
PROVIDERS: ATTEND Internal Medicine Interventional Cardiology
DX: I11.9 Hypertensive heart disease without heart failure (principal); I20.8 Other forms of angina pectoris
CPT/HCPCS: 36415; 80048; 84443